=== PATIENT | male | born 1945 | race Caucasian/White ===

== ENCOUNTER 2018-03-23 06:01 | Inpatient (IN) ==
[2018-03-23] MEDS ORDERED: POTASSIUM CHLORIDE RIDER 10 MEQ in PREMIX 1 EACH IV PRN (06:05)
[2018-03-23] MEDS ORDERED: DIAZEPAM 5 MG TABLET PO ONE (06:05)
[2018-03-23] MEDS ORDERED: ASPIRIN 325 MG TABLET PO ONE (06:05)
[2018-03-23] MEDS ORDERED: diphenhydrAMINE CAP 25 MG CAPSULE PO ONE (06:05)
[2018-03-23] MEDS ORDERED: MAGNESIUM SULF RIDER 2 GM in PREMIX 1 EACH IV PRN (06:05)
[2018-03-23] MEDS ORDERED: DIAZEPAM 5 MG TABLET ONE (06:53)
[2018-03-23] MEDS ORDERED: diphenhydrAMINE CAP 25 MG CAPSULE ONE (06:53)
[2018-03-23] MEDS ORDERED: ASPIRIN 325 MG TABLET ONE (06:53)
[2018-03-23] MEDS: SODIUM CHLORIDE 0.9% 1,000 ML IV SCH ×2 (06:56→18:30)
[2018-03-23] MEDS ORDERED: MIDAZOLAM 2 MG/2 ML VIAL ONE (07:23)
[2018-03-23] MEDS ORDERED: fentaNYL 100 MCG/2 ML VIAL ONE (07:23)
[2018-03-23] MEDS ORDERED: NITROGLYCERIN DRIP 50 MG/250 ML BOTTLE IV ONE (07:23)
[2018-03-23] MEDS ORDERED: VERAPAMIL 5 MG/2 ML VIAL ONE (07:23)
[2018-03-23] MEDS ORDERED: ADENOSINE 90 MG/30 ML VIAL IV ONE (07:57)
[2018-03-23] MEDS ORDERED: LABETALOL 100 MG/20 ML VIAL IV ONE (08:24)
[2018-03-23] MEDS ORDERED: ENOXAPARIN 30 MG/0.3 ML SYRINGE ONE (08:24)
[2018-03-23] MEDS ORDERED: NITROGLYCERIN SL 0.4 MG TABLET SL PRN (08:40)
[2018-03-23] MEDS ORDERED: ACETAMINOPHEN 325 MG TABLET PO PRN (08:40)
[2018-03-23] MEDS ORDERED: ONDANSETRON 4 MG/2 ML VIAL IV PRN (08:40)
[2018-03-23] MEDS ORDERED: DEXTROSE 50% 25 GM/50 ML VIAL IV PRN (09:11)
[2018-03-23] MEDS ORDERED: GLUCAGON 1 MG VIAL IM PRN (09:11)
[2018-03-23 09:49] LABS: Troponin I Only 0.123 NG/ML (0.00-0.045)
[2018-03-23] MEDS ORDERED: INSULIN REGULAR 100 UNIT/ML ONE (11:47)
[2018-03-23] MEDS: INSULIN REGULAR 100 UNIT/ML SUBCUT SCH ×2 (12:06→16:58)
[2018-03-23] MEDS: TICAGRELOR 90 MG TABLET PO SCH ×2 (13:39→21:42)
[2018-03-23] MEDS: ASPIRIN EC 81 MG TABLET PO SCH (13:39)
[2018-03-23] MEDS: glipiZIDE 10 MG TABLET PO SCH (13:40)
[2018-03-23] MEDS: ROSUVASTATIN 20 MG TABLET PO SCH (13:40)
[2018-03-23] MEDS: amLODIPine 5 MG TABLET PO SCH (13:41)
[2018-03-23] MEDS: PANTOPRAZOLE 40 MG TABLET PO SCH (13:41)
[2018-03-23] MEDS: hydrALAZINE 25 MG TABLET PO SCH ×2 (15:10→21:42)
[2018-03-23] MEDS: NICOTINE 21 MG/24 HR PATCH TRANSDERM SCH (15:10)
[2018-03-23] MEDS: ISOSORBIDE DINITRATE 20 MG TABLET PO SCH ×2 (15:10→21:42)
[2018-03-23] MEDS: ZALEPLON 5 MG CAPSULE PO PRN (21:42)
[2018-03-23] MEDS: INSULIN GLARGINE 100 UNIT/ML SUBCUT SCH (21:42)
[2018-03-23] MEDS: diphenhydrAMINE CAP 25 MG CAPSULE PO PRN (23:32)
[2018-03-24] MEDS: SODIUM CHLORIDE 0.9% 1,000 ML IV SCH ×3 (02:28→17:36)
[2018-03-24 05:30] LABS: Basophils # 0.1 10*3/uL (0.0-0.2); Basophils % 0.4 % (0.0-0.8); Eosinophils # 0.2 10*3/uL (0.0-0.87); Eosinophils % 1.2 % (0.00-10.9); Hematocrit 21.3 VOL% (42.0-52.0); Hemoglobin 6.7 GM/DL (14.0-18.0); Immature Granulocytes % 0.6 %; Immature Granulocytes Absolute 0.07 #; Lymphocytes # 2.1 10*3/uL (1.4-4.0); Lymphocytes % 16.7 % (21.2-54.2); Mean Corpuscular HGB Conc 31.5 GM/DL (32-36); Mean Corpuscular Hemoglobin 29 PG (27-34); Mean Corpuscular Volume 92.6 FL (87-102); Mean Platelet Volume 9.4 FL (9.6-12.0); Monocytes # 1.3 10*3/uL (0.11-0.8); Monocytes % 10.5 % (1.7-12.7); NRBC # 0.02 10*3/uL; Neutrophils % 70.6 % (38.7-73.9); Platelet Count 381 T/CUMM (130-400); Red Cell Distribution Width 16.5 % (9.3-17.3); White Blood Count 12.7 T/CUMM (4-12)
[2018-03-24 05:47] LABS: Blood Urea Nitrogen 24 MG/DL (7-18); Calcium 7.7 MG/DL (8.5-10.1); Glucose 110 MG/DL (74-106); Osmolality,Calculated 283.4 MOS/KG (273-304); Potassium 3.7 MMOL/L (3.5-5.1); Sodium 140 MMOL/L (136-145)
[2018-03-24 05:52] LABS: Troponin I Only 0.531 NG/ML (0.00-0.045)
[2018-03-24] MEDS ORDERED: SODIUM CHLORIDE 0.9% 1,000 ML IV PRN (06:51)
[2018-03-24 07:37] LABS: Hemoglobin 7.1 GM/DL (14.0-18.0)
[2018-03-24] MEDS: INSULIN REGULAR 100 UNIT/ML SUBCUT SCH ×3 (08:27→16:43)
[2018-03-24] MEDS ORDERED: MAGNESIUM HYDROXIDE SUSP 30 ML UDCUP PO PRN (08:37)
[2018-03-24] MEDS ORDERED: BISACODYL 5 MG TABLET PO PRN (08:40)
[2018-03-24] MEDS: TICAGRELOR 90 MG TABLET PO SCH ×2 (09:23→21:28)
[2018-03-24] MEDS: ASPIRIN EC 81 MG TABLET PO SCH (09:23)
[2018-03-24] MEDS: ISOSORBIDE DINITRATE 20 MG TABLET PO SCH ×3 (09:26→21:28)
[2018-03-24] MEDS: ROSUVASTATIN 20 MG TABLET PO SCH (09:26)
[2018-03-24] MEDS: NICOTINE 21 MG/24 HR PATCH TRANSDERM SCH (09:26)
[2018-03-24] MEDS: PANTOPRAZOLE 40 MG TABLET PO SCH (09:27)
[2018-03-24] MEDS: amLODIPine 5 MG TABLET PO SCH (09:27)
[2018-03-24] MEDS: glipiZIDE 10 MG TABLET PO SCH (09:27)
[2018-03-24] MEDS: hydrALAZINE 25 MG TABLET PO SCH ×3 (09:27→21:28)
[2018-03-24 16:44] LABS: Hematocrit 26.1 VOL% (42.0-52.0); Hemoglobin 8.6 GM/DL (14.0-18.0)
[2018-03-24] MEDS: INSULIN GLARGINE 100 UNIT/ML SUBCUT SCH (21:28)
[2018-03-24] MEDS: diphenhydrAMINE CAP 25 MG CAPSULE PO PRN (21:28)
[2018-03-25] MEDS: INSULIN REGULAR 100 UNIT/ML SUBCUT SCH ×3 (09:24→16:40)
[2018-03-25 09:39] LABS: Basophils # 0.1 10*3/uL (0.0-0.2); Basophils % 0.6 % (0.0-0.8); Eosinophils # 0.2 10*3/uL (0.0-0.87); Eosinophils % 1.1 % (0.00-10.9); Hematocrit 26.6 VOL% (42.0-52.0); Hemoglobin 8.3 GM/DL (14.0-18.0); Immature Granulocytes % 0.7 %; Lymphocytes # 2.3 10*3/uL (1.4-4.0); Lymphocytes % 17.1 % (21.2-54.2); Mean Corpuscular HGB Conc 31.2 GM/DL (32-36); Mean Corpuscular Hemoglobin 29 PG (27-34); Mean Platelet Volume 9.4 FL (9.6-12.0); Monocytes # 1.5 10*3/uL (0.11-0.8); Monocytes % 11.1 % (1.7-12.7); NRBC # 0.02 10*3/uL; Neutrophils # 9.5 10*3/uL (1.4-7.4); Neutrophils % 69.4 % (38.7-73.9); Platelet Count 428 T/CUMM (130-400); Red Blood Count 2.83 MC/CUMM (3.8-5.5); Red Cell Distribution Width 16.5 % (9.3-17.3); White Blood Count 13.7 T/CUMM (4-12)
[2018-03-25 10:16] LABS: Calcium 8.6 MG/DL (8.5-10.1); Osmolality,Calculated 278.5 MOS/KG (273-304)
[2018-03-25] MEDS: ASPIRIN EC 81 MG TABLET PO SCH (12:40)
[2018-03-25] MEDS: TICAGRELOR 90 MG TABLET PO SCH (12:41)
[2018-03-25] MEDS ORDERED: PROPOFOL 200 MG/20 ML VIAL IV ONE (13:05)
[2018-03-25] MEDS ORDERED: LIDOCAINE 2% 5 ML VIAL ONE (13:05)
[2018-03-25] MEDS ORDERED: METOPROLOL SUCCINATE XL 25 MG TABLET PO SCH (14:30)
[2018-03-25] MEDS: ROSUVASTATIN 20 MG TABLET PO SCH (14:49)
[2018-03-25] MEDS: PANTOPRAZOLE 40 MG TABLET PO SCH (14:50)
[2018-03-25] MEDS: amLODIPine 5 MG TABLET PO SCH (14:50)
[2018-03-25] MEDS: glipiZIDE 10 MG TABLET PO SCH (14:50)
[2018-03-25] MEDS: ISOSORBIDE DINITRATE 20 MG TABLET PO SCH ×3 (14:50→21:33)
[2018-03-25] MEDS: hydrALAZINE 25 MG TABLET PO SCH ×3 (14:50→21:33)
[2018-03-25] MEDS: NICOTINE 21 MG/24 HR PATCH TRANSDERM SCH (14:51)
[2018-03-25] MEDS: ZALEPLON 5 MG CAPSULE PO PRN (21:33)
[2018-03-25] MEDS: CARVEDILOL 3.125 MG TABLET PO SCH (21:33)
[2018-03-26] MEDS: INSULIN GLARGINE 100 UNIT/ML SUBCUT SCH (01:47)
[2018-03-26 07:00] LABS: Basophils # 0.1 10*3/uL (0.0-0.2); Basophils % 0.7 % (0.0-0.8); Eosinophils # 0.2 10*3/uL (0.0-0.87); Eosinophils % 1.4 % (0.00-10.9); Hematocrit 26.4 VOL% (42.0-52.0); Hemoglobin 8.4 GM/DL (14.0-18.0); Immature Granulocytes % 0.5 %; Immature Granulocytes Absolute 0.05 #; Lymphocytes # 2.1 10*3/uL (1.4-4.0); Lymphocytes % 18.7 % (21.2-54.2); Mean Corpuscular HGB Conc 31.8 GM/DL (32-36); Mean Corpuscular Hemoglobin 29 PG (27-34); Mean Platelet Volume 9.4 FL (9.6-12.0); Monocytes # 0.9 10*3/uL (0.11-0.8); Monocytes % 8.5 % (1.7-12.7); Neutrophils # 7.8 10*3/uL (1.4-7.4); Neutrophils % 70.2 % (38.7-73.9); Platelet Count 451 T/CUMM (130-400); Red Blood Count 2.87 MC/CUMM (3.8-5.5); Red Cell Distribution Width 16.5 % (9.3-17.3); White Blood Count 11.1 T/CUMM (4-12)
[2018-03-26 07:18] LABS: Calcium 8.6 MG/DL (8.5-10.1); Osmolality,Calculated 278.7 MOS/KG (273-304)
[2018-03-26] MEDS: INSULIN REGULAR 100 UNIT/ML SUBCUT SCH ×2 (08:54→12:04)
[2018-03-26] MEDS: ROSUVASTATIN 20 MG TABLET PO SCH (08:56)
[2018-03-26] MEDS: PANTOPRAZOLE 40 MG TABLET PO SCH (08:56)
[2018-03-26] MEDS: hydrALAZINE 25 MG TABLET PO SCH ×2 (08:57→14:55)
[2018-03-26] MEDS: amLODIPine 5 MG TABLET PO SCH (08:57)
[2018-03-26] MEDS: ISOSORBIDE DINITRATE 20 MG TABLET PO SCH ×2 (08:57→14:55)
[2018-03-26] MEDS: CARVEDILOL 3.125 MG TABLET PO SCH (08:58)
[2018-03-26] MEDS: glipiZIDE 10 MG TABLET PO SCH (08:58)
[2018-03-26] MEDS: NICOTINE 21 MG/24 HR PATCH TRANSDERM SCH (08:58)
[2018-03-26] MEDS ORDERED: CLOPIDOGREL 300 MG TABLET PO ONE (11:30)
[2018-03-26] MEDS ORDERED: ASPIRIN EC 81 MG TABLET PO SCH (11:30)
[2018-03-26 16:01] VITALS: BP 149/64
[2018-03-27] MEDS ORDERED: CLOPIDOGREL 75 MG TABLET PO SCH (09:00)
== END 2018-03-26 16:45 | disposition home or self-care (01) | DRG 246 ==
LOC: N.CL 06:01 → N.TELEN 13:08
PROVIDERS: ADMIT Internal Medicine Cardiovascular Disease; ATTEND Internal Medicine Cardiovascular Disease

== ENCOUNTER 2018-05-03 11:06 | Inpatient (IN) ==
[2018-05-03 12:40] LABS: Basophils # 0.1 10*3/uL (0.0-0.2); Basophils % 0.5 % (0.0-0.8); Eosinophils # 0.1 10*3/uL (0.0-0.87); Eosinophils % 0.6 % (0.00-10.9); Hematocrit 26.6 VOL% (42.0-52.0); Hemoglobin 7.9 GM/DL (14.0-18.0); Immature Granulocytes % 0.7 %; Immature Granulocytes Absolute 0.11 #; Lymphocytes # 1.2 10*3/uL (1.4-4.0); Lymphocytes % 7.8 % (21.2-54.2); Mean Corpuscular HGB Conc 29.7 GM/DL (32-36); Mean Corpuscular Hemoglobin 26 PG (27-34); Mean Corpuscular Volume 88.7 FL (87-102); Mean Platelet Volume 8.7 FL (9.6-12.0); Monocytes # 0.7 10*3/uL (0.11-0.8); Monocytes % 4.7 % (1.7-12.7); NRBC # 0.02 10*3/uL; Neutrophils # 12.9 10*3/uL (1.4-7.4); Neutrophils % 85.7 % (38.7-73.9); Platelet Count 467 T/CUMM (130-400); Red Cell Distribution Width 14.4 % (9.3-17.3); White Blood Count 15.1 T/CUMM (4-12)
[2018-05-03 13:12] LABS: Alanine Aminotransferase 24 U/L (16-61); Albumin 3.2 G/DL (3.4-5.0); Alkaline Phosphatase 88 U/L (45-117); Aspartate Amino Transferase 17 U/L (0-37); Bilirubin,Total < 0.39 MG/DL (0.2-1.0); Blood Urea Nitrogen 36 MG/DL (7-18); Calcium 8.2 MG/DL (8.5-10.1); Glucose 155 MG/DL (74-106); Osmolality,Calculated 287.5 MOS/KG (273-304); Potassium 4.3 MMOL/L (3.5-5.1); Sodium 139 MMOL/L (136-145)
[2018-05-03 17:31] LABS: Apearance,Urine CLEAR (Clear); Bilirubin,Urine Negative (Negative); Blood, Urine Negative (Negative); Glucose,Urine (UA) Negative (Negative); Ketones,Urine Negative (Negative); Nitrite,Urine Negative (Negative); Protein,Urine >=500 MG/DL; RBC,Urine 1 /HPF (0-4); Squamous Epithelial Cell,Urine Occasional /HPF (0-10); Urine Color Straw (Yellow); Urine Specific Gravity 1.009 (1.001-1.035); Urine Urobilinogen < 2.0 EU/DL (0.2-1.0); WBC,Urine 67 /HPF (0-6)
[2018-05-03] MEDS ORDERED: diphenhydrAMINE 50 MG/1 ML VIAL IV PRN (17:53)
[2018-05-03] MEDS ORDERED: SODIUM CHLORIDE 0.9% 1,000 ML IV PRN (17:53)
[2018-05-03] MEDS ORDERED: NITROGLYCERIN SL 0.4 MG TABLET SL PRN (17:53)
[2018-05-03] MEDS: INSULIN REGULAR 100 UNIT/ML SUBCUT SCH (18:27)
[2018-05-03] MEDS: PANTOPRAZOLE 40 MG TABLET PO SCH (18:27)
[2018-05-03] MEDS: SODIUM CHLORIDE 0.9% 1,000 ML IV SCH (18:28)
[2018-05-03] MEDS: MORPHINE 4 MG/1 ML VIAL IV PRN ×2 (18:30→23:26)
[2018-05-03 19:11] LABS: Hematocrit 27.2 VOL% (42.0-52.0); Hemoglobin 8.3 GM/DL (14.0-18.0)
[2018-05-03] MEDS: LEVOFLOXACIN INJ 750 MG in PREMIX 1 EACH IV SCH (20:30)
[2018-05-03] MEDS: hydrALAZINE 25 MG TABLET PO SCH (20:59)
[2018-05-03] MEDS: ROSUVASTATIN 20 MG TABLET PO SCH (21:00)
[2018-05-03] MEDS: CARVEDILOL 3.125 MG TABLET PO SCH (21:00)
[2018-05-03] MEDS: ISOSORBIDE DINITRATE 20 MG TABLET PO SCH (21:00)
[2018-05-03] MEDS: INSULIN GLARGINE 100 UNIT/ML SUBCUT SCH (21:00)
[2018-05-03] MEDS: ONDANSETRON 4 MG/2 ML VIAL IV PRN (23:26)
[2018-05-04] MEDS: SODIUM CHLORIDE 0.9% 1,000 ML IV SCH ×3 (00:22→21:24)
[2018-05-04 04:56] LABS: Hematocrit 28.5 VOL% (42.0-52.0)
[2018-05-04 04:58] LABS: Basophils # 0.1 10*3/uL (0.0-0.2); Basophils % 0.4 % (0.0-0.8); Eosinophils # 0.1 10*3/uL (0.0-0.87); Hematocrit 28.6 VOL% (42.0-52.0); Hemoglobin 8.8 GM/DL (14.0-18.0); Immature Granulocytes % 0.4 %; Immature Granulocytes Absolute 0.05 #; Lymphocytes # 1.8 10*3/uL (1.4-4.0); Mean Corpuscular HGB Conc 30.8 GM/DL (32-36); Mean Corpuscular Hemoglobin 27 PG (27-34); Mean Corpuscular Volume 88.5 FL (87-102); Mean Platelet Volume 9.1 FL (9.6-12.0); Monocytes # 1.3 10*3/uL (0.11-0.8); Monocytes % 9.5 % (1.7-12.7); Neutrophils # 10.3 10*3/uL (1.4-7.4); Neutrophils % 75.7 % (38.7-73.9); Platelet Count 442 T/CUMM (130-400); Red Blood Count 3.23 MC/CUMM (3.8-5.5); Red Cell Distribution Width 14.3 % (9.3-17.3); White Blood Count 13.7 T/CUMM (4-12)
[2018-05-04 05:15] LABS: Osmolality,Calculated 282.5 MOS/KG (273-304); Potassium 3.7 MMOL/L (3.5-5.1)
[2018-05-04 05:19] LABS: PT Patient Result 10.8 SECS
[2018-05-04] MEDS: MORPHINE 4 MG/1 ML VIAL IV PRN ×4 (08:07→21:23)
[2018-05-04] MEDS: CLOPIDOGREL 75 MG TABLET PO SCH (08:08)
[2018-05-04] MEDS: CARVEDILOL 3.125 MG TABLET PO SCH ×2 (08:08→17:24)
[2018-05-04] MEDS: glipiZIDE 10 MG TABLET PO SCH (08:08)
[2018-05-04] MEDS: PANTOPRAZOLE 40 MG TABLET PO SCH (08:08)
[2018-05-04] MEDS: hydrALAZINE 25 MG TABLET PO SCH (08:08)
[2018-05-04] MEDS: ISOSORBIDE DINITRATE 20 MG TABLET PO SCH ×3 (08:09→21:24)
[2018-05-04] MEDS: ASPIRIN EC 81 MG TABLET PO SCH (08:09)
[2018-05-04] MEDS: INSULIN REGULAR 100 UNIT/ML SUBCUT SCH ×3 (08:09→17:24)
[2018-05-04] MEDS ORDERED: amLODIPine 5 MG TABLET PO SCH (09:00)
[2018-05-04 09:50] LABS: Hematocrit 28.5 VOL% (42.0-52.0)
[2018-05-04] MEDS ORDERED: amLODIPine 5 MG TABLET PO ONE (15:42)
[2018-05-04] MEDS: ROSUVASTATIN 20 MG TABLET PO SCH (21:24)
[2018-05-04] MEDS: PRAMIPEXOLE 0.25 MG TABLET PO SCH (21:24)
[2018-05-04] MEDS: INSULIN GLARGINE 100 UNIT/ML SUBCUT SCH (21:24)
[2018-05-04] MEDS ORDERED: diphenhydrAMINE CAP 50 MG CAPSULE PO ONE (23:10)
[2018-05-05] MEDS: SODIUM CHLORIDE 0.9% 1,000 ML IV SCH ×3 (00:40→17:27)
[2018-05-05] MEDS: MORPHINE 4 MG/1 ML VIAL IV PRN ×4 (02:20→20:51)
[2018-05-05 05:41] LABS: Basophils # 0.1 10*3/uL (0.0-0.2); Basophils % 0.6 % (0.0-0.8); Eosinophils # 0.2 10*3/uL (0.0-0.87); Eosinophils % 1.6 % (0.00-10.9); Hemoglobin 8.3 GM/DL (14.0-18.0); Immature Granulocytes % 0.6 %; Immature Granulocytes Absolute 0.07 #; Lymphocytes # 1.3 10*3/uL (1.4-4.0); Lymphocytes % 10.5 % (21.2-54.2); Mean Corpuscular HGB Conc 30.7 GM/DL (32-36); Mean Corpuscular Hemoglobin 27 PG (27-34); Mean Corpuscular Volume 88.8 FL (87-102); Monocytes # 1.1 10*3/uL (0.11-0.8); Monocytes % 9.1 % (1.7-12.7); Neutrophils # 9.4 10*3/uL (1.4-7.4); Neutrophils % 77.6 % (38.7-73.9); Platelet Count 422 T/CUMM (130-400); Red Blood Count 3.04 MC/CUMM (3.8-5.5); Red Cell Distribution Width 14.3 % (9.3-17.3); White Blood Count 12.1 T/CUMM (4-12)
[2018-05-05 06:18] LABS: Calcium 8.1 MG/DL (8.5-10.1); Osmolality,Calculated 281.5 MOS/KG (273-304); Potassium 3.9 MMOL/L (3.5-5.1)
[2018-05-05] MEDS: ISOSORBIDE DINITRATE 20 MG TABLET PO SCH ×3 (08:16→20:57)
[2018-05-05] MEDS: INSULIN REGULAR 100 UNIT/ML SUBCUT SCH ×3 (08:16→17:10)
[2018-05-05] MEDS: amLODIPine 10 MG TABLET PO SCH (08:16)
[2018-05-05] MEDS: CLOPIDOGREL 75 MG TABLET PO SCH (08:16)
[2018-05-05] MEDS: CARVEDILOL 3.125 MG TABLET PO SCH ×2 (08:16→17:27)
[2018-05-05] MEDS: ASPIRIN EC 81 MG TABLET PO SCH (08:16)
[2018-05-05] MEDS: glipiZIDE 10 MG TABLET PO SCH (08:16)
[2018-05-05] MEDS: PANTOPRAZOLE 40 MG TABLET PO SCH (08:16)
[2018-05-05] MEDS: METAXALONE 800 MG TABLET PO PRN ×2 (11:18→19:16)
[2018-05-05] MEDS: POLYETHYLENE GLYCOL POWDER 17 GM PACK PO SCH (13:25)
[2018-05-05 14:01] LABS: Protein/Creatinine Ratio,Urine 4.3 RATIO
[2018-05-05] MEDS: LEVOFLOXACIN INJ 750 MG in PREMIX 1 EACH IV SCH (18:07)
[2018-05-05] MEDS: traZODone 50 MG TABLET PO PRN (20:55)
[2018-05-05] MEDS: PRAMIPEXOLE 0.25 MG TABLET PO SCH (20:56)
[2018-05-05] MEDS: ROSUVASTATIN 20 MG TABLET PO SCH (20:57)
[2018-05-05] MEDS: INSULIN GLARGINE 100 UNIT/ML SUBCUT SCH (21:02)
[2018-05-06] MEDS: ONDANSETRON 4 MG/2 ML VIAL IV PRN (01:58)
[2018-05-06] MEDS: SODIUM CHLORIDE 0.9% 1,000 ML IV SCH ×3 (03:40→18:16)
[2018-05-06] MEDS: MORPHINE 4 MG/1 ML VIAL IV PRN ×3 (03:40→17:57)
[2018-05-06 04:53] LABS: Basophils # 0.1 10*3/uL (0.0-0.2); Basophils % 0.5 % (0.0-0.8); Eosinophils # 0.2 10*3/uL (0.0-0.87); Eosinophils % 1.4 % (0.00-10.9); Hematocrit 27.5 VOL% (42.0-52.0); Hemoglobin 8.4 GM/DL (14.0-18.0); Immature Granulocytes % 0.4 %; Immature Granulocytes Absolute 0.05 #; Lymphocytes % 8.8 % (21.2-54.2); Mean Corpuscular HGB Conc 30.5 GM/DL (32-36); Mean Corpuscular Hemoglobin 27 PG (27-34); Mean Corpuscular Volume 88.7 FL (87-102); Mean Platelet Volume 8.9 FL (9.6-12.0); Monocytes % 8.8 % (1.7-12.7); Neutrophils # 9.3 10*3/uL (1.4-7.4); Neutrophils % 80.1 % (38.7-73.9); Platelet Count 412 T/CUMM (130-400); Red Cell Distribution Width 14.2 % (9.3-17.3); White Blood Count 11.6 T/CUMM (4-12)
[2018-05-06 05:02] LABS: INR 1.1; PT Patient Result 11.4 SECS
[2018-05-06 05:30] LABS: Osmolality,Calculated 277.8 MOS/KG (273-304); Potassium 4.1 MMOL/L (3.5-5.1)
[2018-05-06] MEDS: INSULIN REGULAR 100 UNIT/ML SUBCUT SCH ×3 (08:46→16:15)
[2018-05-06] MEDS: POLYETHYLENE GLYCOL POWDER 17 GM PACK PO SCH (08:47)
[2018-05-06] MEDS: ASPIRIN EC 81 MG TABLET PO SCH (08:48)
[2018-05-06] MEDS: amLODIPine 10 MG TABLET PO SCH (08:48)
[2018-05-06] MEDS: CLOPIDOGREL 75 MG TABLET PO SCH (08:48)
[2018-05-06] MEDS: ISOSORBIDE DINITRATE 20 MG TABLET PO SCH ×3 (08:48→20:47)
[2018-05-06] MEDS: PANTOPRAZOLE 40 MG TABLET PO SCH (08:48)
[2018-05-06] MEDS: glipiZIDE 10 MG TABLET PO SCH (08:49)
[2018-05-06] MEDS: CARVEDILOL 3.125 MG TABLET PO SCH ×2 (08:49→17:05)
[2018-05-06] MEDS: METAXALONE 800 MG TABLET PO PRN (11:19)
[2018-05-06] MEDS ORDERED: MAGNESIUM CITRATE 300 ML BOTTLE PO ONE (17:29)
[2018-05-06] MEDS: PRAMIPEXOLE 0.25 MG TABLET PO SCH (20:47)
[2018-05-06] MEDS: ROSUVASTATIN 20 MG TABLET PO SCH (20:47)
[2018-05-06] MEDS: INSULIN GLARGINE 100 UNIT/ML SUBCUT SCH (20:47)
[2018-05-06] MEDS: traZODone 50 MG TABLET PO PRN (20:51)
[2018-05-07] MEDS: SODIUM CHLORIDE 0.9% 1,000 ML IV SCH (01:00)
[2018-05-07] MEDS: MORPHINE 4 MG/1 ML VIAL IV PRN ×2 (01:00→07:01)
[2018-05-07] MEDS: INSULIN REGULAR 100 UNIT/ML SUBCUT SCH ×2 (08:45→11:59)
[2018-05-07] MEDS: ISOSORBIDE DINITRATE 20 MG TABLET PO SCH (08:48)
[2018-05-07] MEDS: POLYETHYLENE GLYCOL POWDER 17 GM PACK PO SCH (08:48)
[2018-05-07] MEDS: ASPIRIN EC 81 MG TABLET PO SCH (08:48)
[2018-05-07] MEDS: amLODIPine 10 MG TABLET PO SCH (08:49)
[2018-05-07] MEDS: glipiZIDE 10 MG TABLET PO SCH (08:49)
[2018-05-07] MEDS ORDERED: NEBIVOLOL 5 MG TABLET PO SCH (09:00)
[2018-05-07] MEDS ORDERED: CARVEDILOL 6.25 MG TABLET PO SCH (09:00)
[2018-05-07] MEDS: CLOPIDOGREL 75 MG TABLET PO SCH (09:37)
[2018-05-07] MEDS: PANTOPRAZOLE 40 MG TABLET PO SCH (09:38)
[2018-05-07] MEDS: METAXALONE 800 MG TABLET PO PRN (09:47)
[2018-05-07 12:31] VITALS: BP 162/72
[2018-05-07 12:38] LABS: Hematocrit 26.3 VOL% (42.0-52.0); Hemoglobin 8.1 GM/DL (14.0-18.0)
[2018-05-07] MEDS ORDERED: TUBERCULIN SKIN TEST 0.1 ML SYRINGE INTRADERM ONE (14:22)
[2018-05-07] MEDS ORDERED: LACTULOSE 20 GM/30 ML UDCUP PO SCH (15:00)
== END 2018-05-07 16:00 | disposition swing bed (61) | DRG 312 ==
LOC: N.ED 11:06 → N.EDINP 15:28 → SUATTDRO 15:28 → N.TELES 17:46
PROVIDERS: ADMIT Internal Medicine; ATTEND Internal Medicine Geriatric Medicine

== ENCOUNTER 2019-03-08 21:34 | Observation (INO) ==
[2019-03-08] MEDS ORDERED: SODIUM CHLORIDE 0.9% 500 ML IV STA (22:38)
[2019-03-08 22:55] LABS: Basophils # 0.1 10*3/uL (0.0-0.2); Basophils % 0.4 % (0.0-0.8); Eosinophils # 0.1 10*3/uL (0.0-0.87); Eosinophils % 0.6 % (0.00-10.9); Hematocrit 40.7 VOL% (42.0-52.0); Hemoglobin 13.4 GM/DL (14.0-18.0); Immature Granulocytes % 0.7 %; Immature Granulocytes Absolute 0.09 #; Lymphocytes # 1.5 10*3/uL (1.4-4.0); Lymphocytes % 11.5 % (21.2-54.2); Mean Corpuscular HGB Conc 32.9 GM/DL (32-36); Monocytes % 5.5 % (1.7-12.7); Neutrophils % 81.3 % (38.7-73.9); Platelet Count 305 T/CUMM (130-400); Red Blood Count 4.11 MC/CUMM (3.8-5.5); Red Cell Distribution Width 12.7 % (9.3-17.3); White Blood Count 13.4 T/CUMM (4-12)
[2019-03-08 23:02] LABS: PT Patient Result 10.9 SECS
[2019-03-08 23:18] LABS: ABG HCO3 21.1 MMOL/L (20-26); ABG Oxygen Saturation 96.2 % (95-100); ABG PCO2 43.4 MM HG (35-48); ABG PH 7.318 (7.35-7.45); ABG PO2 88.6 MM HG (80-95); ABG TCO2 19.5 MMOL/L (23-27); Allen Test Positive
[2019-03-08 23:21] LABS: Alanine Aminotransferase 13 U/L (16-61); Alkaline Phosphatase 97 U/L (45-117); Aspartate Amino Transferase 10 U/L (0-37); Bilirubin,Total < 0.39 MG/DL (0.2-1.0); Blood Urea Nitrogen 34 MG/DL (7-18); Calcium 7.8 MG/DL (8.5-10.1); Glucose 176 MG/DL (74-106); Osmolality,Calculated 277.4 MOS/KG (273-304); Total Protein 6.3 G/DL (6.4-8.3); Troponin I < 0.015 NG/ML (0.00-0.045)
[2019-03-09 00:11] LABS: Apearance,Urine Slightly Hazy (Clear); Bacteria,Urine Occasional /HPF (Few); Bilirubin,Urine Negative (Negative); Blood, Urine Negative (Negative); Glucose,Urine (UA) 50 mg/dL (Negative); Ketones,Urine Negative (Negative); Mucus,Urine Occasional /LPF (Occasional); Nitrite,Urine Negative (Negative); Protein,Urine >=500 MG/DL; RBC,Urine <1 /HPF (0-4); Squamous Epithelial Cell,Urine Occasional /HPF (0-10); Urine Color Yellow (Yellow); Urine Specific Gravity 1.009 (1.001-1.035); Urine Urobilinogen < 2.0 EU/DL (0.2-1.0); WBC,Urine 3 /HPF (0-6)
[2019-03-09 00:22] LABS: Barbiturates Screen,Urine Negative (Negative); Benzodiazepines Screen,Urine Negative (Negative); Cannabinoid Screen,Urine Negative (Negative); Opiate Screen,Urine Negative (Negative); Phencyclidine Screen,Urine Negative (Negative)
[2019-03-09] MEDS ORDERED: NICOTINE 21 MG/24 HR PATCH TRANSDERM PRN (00:35)
[2019-03-09] MEDS ORDERED: ONDANSETRON 4 MG/2 ML VIAL IV PRN (00:35)
[2019-03-09] MEDS ORDERED: BISACODYL 5 MG TABLET PO PRN (00:35)
[2019-03-09] MEDS ORDERED: GLUCAGON 1 MG VIAL IM PRN (00:35)
[2019-03-09] MEDS ORDERED: DEXTROSE 50% 25 GM/50 ML VIAL IV PRN (00:35)
[2019-03-09] MEDS ORDERED: METOCLOPRAMIDE 10 MG/2 ML VIAL IV PRN (00:35)
[2019-03-09] MEDS ORDERED: FAMOTIDINE INJ 40 MG in SODIUM CHLORIDE 0.9% 100 ML IV SCH (01:00)
[2019-03-09 01:37] LABS: Alanine Aminotransferase 16 U/L (16-61); Alkaline Phosphatase 102 U/L (45-117); Aspartate Amino Transferase 12 U/L (0-37); Bilirubin,Total < 0.39 MG/DL (0.2-1.0); Blood Urea Nitrogen 33 MG/DL (7-18); Glucose 154 MG/DL (74-106); Osmolality,Calculated 277.2 MOS/KG (273-304); Total Protein 6.3 G/DL (6.4-8.3)
[2019-03-09] MEDS ORDERED: THIAMINE INJ 100 MG, FOLIC ACID INJ 1 MG, MULTIVITAMIN INJ 10 ML in SODIUM CHLORIDE 0.9... IV ONE (02:00)
[2019-03-09] MEDS ORDERED: DEXTROSE 50% 25 GM/50 ML SYRINGE IV PRN (02:26)
[2019-03-09] MEDS: INSULIN REGULAR 100 UNIT/ML SUBCUT SCH ×2 (07:07→13:43)
[2019-03-09] MEDS ORDERED: CARVEDILOL 3.125 MG TABLET PO SCH (09:00)
[2019-03-09] MEDS ORDERED: CLOPIDOGREL 75 MG TABLET PO SCH (09:00)
[2019-03-09] MEDS ORDERED: FAMOTIDINE 20 MG/2 ML VIAL IV SCH (09:00)
[2019-03-09] MEDS ORDERED: SODIUM CHLORIDE 0.9% 1,000 ML IV SCH (12:00)
[2019-03-09 16:20] VITALS: BP 166/90
== END 2019-03-09 18:08 | disposition home or self-care (01) ==
LOC: EDBD → EDUNIT# → N.ED 21:34 → N.EDINP 21:34 → N.5E 03-09 07:20
PROVIDERS: ADMIT Internal Medicine; ATTEND Internal Medicine

== ENCOUNTER 2022-03-05 19:16 | Inpatient (IN) ==
[2022-03-05] MEDS ORDERED: cefTRIAXone 1,000 MG in SODIUM CHLORIDE 0.9% 100 ML IV STA (19:47)
[2022-03-05] MEDS ORDERED: AZITHROMYCIN INJ 500 MG in SODIUM CHLORIDE 0.9% 250 ML IV STA (19:47)
[2022-03-05 20:46] LABS: Basophils % 0.3 % (0.0-0.8); Hematocrit 29.5 VOL% (42.0-52.0); Hemoglobin 9.2 GM/DL (14.0-18.0); Immature Granulocytes % 0.6 %; Immature Granulocytes Absolute 0.09 #; Lymphocytes # 1.2 10*3/uL (1.4-4.0); Lymphocytes % 7.7 % (21.2-54.2); Mean Corpuscular HGB Conc 31.2 GM/DL (32-36); Mean Corpuscular Volume 93.1 FL (87-102); Mean Platelet Volume 9.2 FL (9.6-12.0); Monocytes # 1.6 10*3/uL (0.11-0.8); Monocytes % 10.4 % (1.7-12.7); Platelet Count 326 T/CUMM (130-400); Red Blood Count 3.17 MC/CUMM (3.8-5.5); Red Cell Distribution Width 13.9 % (9.3-17.3); White Blood Count 15.1 T/CUMM (4-12)
[2022-03-05 21:03] LABS: Albumin 2.7 G/DL (3.4-5.0); Bilirubin,Total 0.6 MG/DL (0.20-1.00); Osmolality,Calculated 272.2 MOS/KG (273-304); Potassium 3.2 MMOL/L (3.5-5.1); Total Protein 6.9 G/DL (6.4-8.2)
[2022-03-05] MEDS ORDERED: guaiFENesin/DM ER 600-30 MG TABLET PO PRN (21:33)
[2022-03-05] MEDS ORDERED: ONDANSETRON 4 MG/2 ML VIAL IV PRN (21:33)
[2022-03-05] MEDS ORDERED: DEXTROSE 50% 25 GM/50 ML VIAL IV PRN (21:33)
[2022-03-05] MEDS ORDERED: MORPHINE 2 MG/1 ML SYRINGE IV PRN (21:33)
[2022-03-05] MEDS ORDERED: DOCUSATE SODIUM 100 MG CAPSULE PO PRN (21:33)
[2022-03-05] MEDS ORDERED: DEXTROSE 10% 250 ML BAG IV PRN (21:33)
[2022-03-05] MEDS ORDERED: hydrALAZINE 20 MG/1 ML VIAL IV PRN (21:33)
[2022-03-05] MEDS ORDERED: ALBUTEROL 2.5 MG/3 ML NEB RESP TX PRN (21:33)
[2022-03-05] MEDS ORDERED: ACETAMINOPHEN 325 MG TABLET PO PRN (21:33)
[2022-03-05] MEDS ORDERED: GLUCAGON 1 MG VIAL IM PRN ×2 (21:33)
[2022-03-05] MEDS ORDERED: diphenhydrAMINE CAP 25 MG CAPSULE PO PRN (21:33)
[2022-03-05] MEDS: ZALEPLON 5 MG CAPSULE PO PRN (22:39)
[2022-03-05] MEDS: NICOTINE 21 MG/24 HR PATCH TRANSDERM PRN (22:40)
[2022-03-06] MEDS ORDERED: ALBUTEROL INHALER 18 GM INH PRN (00:14)
[2022-03-06] MEDS ORDERED: ALBUTEROL/IPRATROPIUM 3 ML NEB RESP TX SCH (01:00)
[2022-03-06 03:32] LABS: Basophils % 0.3 % (0.0-0.8); Hematocrit 28.6 VOL% (42.0-52.0); Hemoglobin 8.9 GM/DL (14.0-18.0); Immature Granulocytes % 0.4 %; Immature Granulocytes Absolute 0.07 #; Lymphocytes % 6.4 % (21.2-54.2); Mean Corpuscular HGB Conc 31.1 GM/DL (32-36); Mean Corpuscular Volume 93.8 FL (87-102); Mean Platelet Volume 9.3 FL (9.6-12.0); Monocytes # 1.8 10*3/uL (0.11-0.8); Monocytes % 11.5 % (1.7-12.7); Neutrophils % 81.4 % (38.7-73.9); Platelet Count 313 T/CUMM (130-400); Red Blood Count 3.05 MC/CUMM (3.8-5.5); Red Cell Distribution Width 13.9 % (9.3-17.3)
[2022-03-06 03:44] LABS: Calcium 8.4 MG/DL (8.5-10.1); Osmolality,Calculated 272.4 MOS/KG (273-304); Potassium 3.1 MMOL/L (3.5-5.1)
[2022-03-06] MEDS: ALBUTEROL INHALER 18 GM INH SCH ×5 (03:49→20:59)
[2022-03-06] MEDS ORDERED: POTASSIUM CHLORIDE 20 MEQ TABLET PO ONE (08:17)
[2022-03-06] MEDS: INSULIN LISPRO 100 UNIT/ML SUBCUT SCH ×4 (08:27→20:59)
[2022-03-06] MEDS: CHOLECALCIFEROL 1,000 UNIT TABLET PO SCH (09:04)
[2022-03-06] MEDS: NEBIVOLOL 10 MG TABLET PO SCH (09:04)
[2022-03-06] MEDS: ASCORBIC ACID 500 MG TABLET PO SCH ×2 (09:04→21:00)
[2022-03-06] MEDS: PANTOPRAZOLE 40 MG TABLET PO SCH (09:04)
[2022-03-06] MEDS: FAMOTIDINE 20 MG TABLET PO SCH ×2 (09:04→20:59)
[2022-03-06] MEDS: ZINC GLUCONATE 50 MG TABLET PO SCH (09:04)
[2022-03-06] MEDS: cefTRIAXone 1,000 MG in SODIUM CHLORIDE 0.9% 100 ML IV SCH (09:05)
[2022-03-06] MEDS: DEXAMETHASONE 10 MG/1 ML VIAL IV SCH (09:06)
[2022-03-06] MEDS: HEPARIN 5,000 UNIT/1 ML VIAL SUBCUT SCH ×2 (09:16→20:59)
[2022-03-06] MEDS: AZITHROMYCIN INJ 500 MG in SODIUM CHLORIDE 0.9% 250 ML IV SCH (22:53)
[2022-03-07] MEDS: ALBUTEROL INHALER 18 GM INH SCH ×6 (00:03→23:25)
[2022-03-07] MEDS: INSULIN GLARGINE 100 UNIT/ML SUBCUT SCH (09:40)
[2022-03-07] MEDS: DEXAMETHASONE 10 MG/1 ML VIAL IV SCH (09:40)
[2022-03-07] MEDS: ASCORBIC ACID 500 MG TABLET PO SCH ×2 (09:41→20:50)
[2022-03-07] MEDS: HEPARIN 5,000 UNIT/1 ML VIAL SUBCUT SCH ×2 (09:41→20:50)
[2022-03-07] MEDS: amLODIPine 10 MG TABLET PO SCH (09:41)
[2022-03-07] MEDS: NEBIVOLOL 10 MG TABLET PO SCH (09:42)
[2022-03-07] MEDS: cefTRIAXone 1,000 MG in SODIUM CHLORIDE 0.9% 100 ML IV SCH (09:42)
[2022-03-07] MEDS: ISOSORBIDE DINITRATE 20 MG TABLET PO SCH ×3 (09:42→20:50)
[2022-03-07] MEDS: CHOLECALCIFEROL 1,000 UNIT TABLET PO SCH (09:42)
[2022-03-07] MEDS: ZINC GLUCONATE 50 MG TABLET PO SCH (09:42)
[2022-03-07] MEDS: PANTOPRAZOLE 40 MG TABLET PO SCH (09:48)
[2022-03-07] MEDS: FAMOTIDINE 20 MG TABLET PO SCH ×2 (09:49→20:50)
[2022-03-07] MEDS: INSULIN LISPRO 100 UNIT/ML SUBCUT SCH ×4 (09:49→20:51)
[2022-03-07 10:48] LABS: Basophils % 0.2 % (0.0-0.8); Hematocrit 29.9 VOL% (42.0-52.0); Hemoglobin 9.4 GM/DL (14.0-18.0); Immature Granulocytes % 1.2 %; Immature Granulocytes Absolute 0.14 #; Lymphocytes # 0.7 10*3/uL (1.4-4.0); Lymphocytes % 5.7 % (21.2-54.2); Mean Corpuscular HGB Conc 31.4 GM/DL (32-36); Mean Corpuscular Volume 91.2 FL (87-102); Mean Platelet Volume 9.5 FL (9.6-12.0); Monocytes # 0.5 10*3/uL (0.11-0.8); Monocytes % 4.6 % (1.7-12.7); Neutrophils % 88.3 % (38.7-73.9); Platelet Count 313 T/CUMM (130-400); Red Blood Count 3.28 MC/CUMM (3.8-5.5); Red Cell Distribution Width 13.7 % (9.3-17.3); White Blood Count 11.7 T/CUMM (4-12)
[2022-03-07 11:11] LABS: Alanine Aminotransferase 11 U/L (16-61); Albumin 2.6 G/DL (3.4-5.0); Alkaline Phosphatase 78 U/L (45-117); Aspartate Amino Transferase 9 U/L (0-37); Bilirubin,Total < 0.39 MG/DL (0.20-1.00); Blood Urea Nitrogen 51 MG/DL (7-18); Calcium 8.8 MG/DL (8.5-10.1); Carbon Dioxide 28 MMOL/L (21-32); Chloride 90 MMOL/L (98-107); Glucose 311 MG/DL (74-106); Osmolality,Calculated 282.1 MOS/KG (273-304); Potassium 3.6 MMOL/L (3.5-5.1); Sodium 128 MMOL/L (136-145)
[2022-03-07 16:28] LABS: Hepatitis B Core IgM Quant < 0.05 Index; Hepatitis B Surface Ag Quant < 0.10 Index; Hepatitis B Surface Ag Result Non-Reactive (NonReactive); Hepatitis C Virus Ab Quant 0.04 Index; Hepatitis C Virus Ab Result Non-Reactive (NonReactive)
[2022-03-07] MEDS: ZALEPLON 5 MG CAPSULE PO PRN (20:50)
[2022-03-07] MEDS: AZITHROMYCIN INJ 500 MG in SODIUM CHLORIDE 0.9% 250 ML IV SCH (21:00)
[2022-03-07] MEDS: NICOTINE 21 MG/24 HR PATCH TRANSDERM PRN (23:02)
[2022-03-08] MEDS: ALBUTEROL INHALER 18 GM INH SCH ×2 (04:53→05:29)
[2022-03-08 05:46] LABS: Basophils % 0.1 % (0.0-0.8); Hematocrit 29.2 VOL% (42.0-52.0); Hemoglobin 9.2 GM/DL (14.0-18.0); Immature Granulocytes % 2.2 %; Lymphocytes # 0.9 10*3/uL (1.4-4.0); Lymphocytes % 6.6 % (21.2-54.2); Mean Corpuscular HGB Conc 31.5 GM/DL (32-36); Mean Corpuscular Volume 92.4 FL (87-102); Mean Platelet Volume 9.4 FL (9.6-12.0); Monocytes # 0.6 10*3/uL (0.11-0.8); Monocytes % 4.4 % (1.7-12.7); Neutrophils % 86.7 % (38.7-73.9); Platelet Count 381 T/CUMM (130-400); Red Blood Count 3.16 MC/CUMM (3.8-5.5); Red Cell Distribution Width 13.6 % (9.3-17.3); White Blood Count 13.8 T/CUMM (4-12)
[2022-03-08 06:04] LABS: Alanine Aminotransferase 12 U/L (16-61); Albumin 2.6 G/DL (3.4-5.0); Alkaline Phosphatase 73 U/L (45-117); Aspartate Amino Transferase 7 U/L (0-37); Bilirubin,Total < 0.39 MG/DL (0.20-1.00); Blood Urea Nitrogen 63 MG/DL (7-18); Calcium 8.3 MG/DL (8.5-10.1); Carbon Dioxide 27 MMOL/L (21-32); Chloride 92 MMOL/L (98-107); Glucose 222 MG/DL (74-106); Osmolality,Calculated 288.5 MOS/KG (273-304); Potassium 3.7 MMOL/L (3.5-5.1); Sodium 132 MMOL/L (136-145); Total Protein 6.5 G/DL (6.4-8.2)
[2022-03-08 08:23] VITALS: BP 155/74
[2022-03-08] MEDS: DEXAMETHASONE 10 MG/1 ML VIAL IV SCH (09:46)
[2022-03-08] MEDS: FAMOTIDINE 20 MG TABLET PO SCH (09:47)
[2022-03-08] MEDS: ZINC GLUCONATE 50 MG TABLET PO SCH (09:47)
[2022-03-08] MEDS: amLODIPine 10 MG TABLET PO SCH (09:47)
[2022-03-08] MEDS: ASCORBIC ACID 500 MG TABLET PO SCH (09:47)
[2022-03-08] MEDS: CHOLECALCIFEROL 1,000 UNIT TABLET PO SCH (09:47)
[2022-03-08] MEDS: NEBIVOLOL 10 MG TABLET PO SCH (09:47)
[2022-03-08] MEDS: ISOSORBIDE DINITRATE 20 MG TABLET PO SCH (09:47)
[2022-03-08] MEDS: PANTOPRAZOLE 40 MG TABLET PO SCH (09:47)
[2022-03-08] MEDS: INSULIN LISPRO 100 UNIT/ML SUBCUT SCH (09:48)
[2022-03-08] MEDS: HEPARIN 5,000 UNIT/1 ML VIAL SUBCUT SCH (09:48)
[2022-03-08] MEDS: cefTRIAXone 1,000 MG in SODIUM CHLORIDE 0.9% 100 ML IV SCH (09:48)
[2022-03-08] MEDS: INSULIN GLARGINE 100 UNIT/ML SUBCUT SCH (09:57)
[2022-03-08] MEDS ORDERED: LINACLOTIDE 145 MCG CAPSULE PO SCH (10:00)
== END 2022-03-08 11:47 | disposition home health service (06) | DRG 177 ==
LOC: N.ED 19:16 → N.EDINP 21:33 → N.5E 03-06 10:53
PROVIDERS: ADMIT Family Medicine; ATTEND Family Medicine